=== PATIENT | female | born 1995 | race Hispanic/Latino ===

== ENCOUNTER 2020-02-02 08:41 | Outpatient (CLI) | payer OTHER ==
--- NOTE | 2020-02-02 09:26 | ULT ---
Obstetrical ultrasound: 02/02/2020 COMPARISON: None. HISTORY: 24-year-old female undergoing assessment of anatomy. TECHNIQUE: Multiplanar grayscale sonographic imaging of the gravid uterus obtained. FINDINGS: A single intrauterine gestation is present demonstrating a variable/breech presentation. Cervical gregorio gth is approximately 5 cm. urinary bladder, umbilical cord, umbilical cord insertion site, kidneys, and stomach appear grossly unremarkable. Four-chamber heart view appears within normal limit s. heart rate is 144 bpm. The spine, nose/lips, and intracranial contents appear within normal limits. Placenta located anteriorly demonstrating no evidence for previa or abruption. The maternal adnexa was not imaged on this examination. Amniotic fluid index is 15.3 cm. biometry: BPD 4.8 cm, 20 weeks 3 days Head circumference 18.4 cm, 20 weeks 6 days Abdominal circumference 17.3 cm, 22 weeks 2 days Femur length 3.6 cm, 21 weeks 3 days Average age based on ultrasound is 21 weeks 2 days. Estimated date of delivery is 06/12/2020. Estimated weight is 443 g +/- 65 g. IMPRESSION: Single intrauterine gestation as detailed above. Transcribed Date/Time: 02/02/2020 9:33 AM
== END 2020-02-02 08:42 | disposition home or self-care (01) ==
LOC: BICULT 08:41
PROVIDERS: ATTEND Family Medicine
DX: O09.92 Supervision of high risk pregnancy, unspecified, second trimester (principal); Z3A.21 21 weeks gestation of pregnancy
CPT/HCPCS: 76805

== ENCOUNTER 2020-05-01 09:20 | Day surgery (SDC) | payer OTHER ==
[2020-05-01] MEDS ORDERED: hydrALAZINE 20 MG/ML VIAL SLOW IVP PRN (10:08)
[2020-05-01] MEDS ORDERED: FLU VACC QS2020-21(6MOS UP)/PF 60 MCG/0.5 ML SYRINGE IM ONE (10:15)
[2020-05-01 11:06] LABS: ALT (SGPT) 17 U/L (8-55); AST (SGOT) 15 U/L (5-34); Albumin 3.1 g/dL (3.5-5.0); Alkaline Phosphatase 168 U/L (40-110); Anion Gap 11 mmol/L (10-20); BUN (Urea Nitrogen) 9 mg/dL (7.0-18.7); Bilirubin, Total 0.3 mg/dL (0.2-1.2); Calc. Creatinine Clearance 0 mL/min (70-130); Calcium 8.6 mg/dL (7.8-10.44); Carbon Dioxide 22 mmol/L (22-29); Chloride 104 mmol/L (98-107); Globulin 3.3 g/dL (2.4-3.5); Glucose 85 mg/dL (70-105); Potassium 3.8 mmol/L (3.5-5.1); Protein, Total 6.4 g/dL (6.0-8.3); Sodium 133 mmol/L (136-145)
[2020-05-01 11:22] LABS: #Eosinphils 0.1 thou/uL (0.0-0.7); #Lymphocytes 1.8 thou/uL (1.20-3.40); #Monocytes 0.5 thou/uL (0.11-0.59); #Neutrophils 6.8 thou/uL (1.40-6.50); %Basophils 0.4 % (0.0-1.0); %Eosinophils 0.6 % (0.0-10.0); %Lymphocytes 19.9 % (21.0-51.0); %Monocytes 5.6 % (0.0-10.0); %Neutrophils 73.6 % (42.0-75.0); Hemoglobin 11.1 g/dL (12.0-16.0); Large Platelets SLIGHT; MDiff Complete? YES; Mean Corpuscular HGB CONC 33.6 g/dL (32.0-36.0); Mean Corpuscular Hemoglobin 28.1 pg (27.0-31.0); Mean Corpuscular Volume 83.7 fL (78.0-98.0); Mean Platelet Volume 11.7 fL (7.4-10.4); Platelet Count 118 thou/uL (130-400); Platelet Morphology Comment Appears Decreased; Polychromasia SLIGHT = 2-3 cells (100X) (0-2/hpf); RBC Distribution Width 12.5 % (11.5-14.5); Red Blood Cell (RBC) Count 3.93 mill/uL (4.20-5.40); White Blood Cell (WBC) Count 9.2 thou/uL (4.8-10.8)
--- NOTE | 2020-05-01 11:33 | ULT ---
LIMITED OBSTETRICAL ULTRASOUND FOR BIOPHYSICAL PROFILE INDICATION: Nonreassuring heart tones TECHNIQUE: Grayscale, M-mode Doppler, color Doppler and spectral Doppler images were obtained. Biophy sical profile was submitted by the factory focus technician. Imaging is focused on the clinical indication. COMPARISON: February 02, 2020 GESTATION: Number of gestations: Single. Presentation: Cephalic. heart rate: 150 bpm. Placental location: Anterior Previa: No evidence for previa. Cervical length: 4.3 cm SANDIE: 11.4 cm. Biophysical profile: tone: 2 out of 2. breathin out of 2 movements: 2 out of 2 Amniotic fluid level: 2 out of 2 The uterus and adnexa were not fully evaluated. IMPRESSION: 1. Single live intrauterine gestation with size and dates as above. 2. Biophysical profile of 8 out of 8.
--- NOTE | 2020-05-01 14:07 | ULT ---
[facility] History: Abnormal heart bones Comparison: None. Findings: Real-time grayscale, color and spectral analysis of the pelvis was performed transabdominal approach. Single viable intrauterine . Ultrasound age is 34 week 5 day with estimated date of delivery June 07, 2020, concordant with the clinical age. Estimated weight: 5 lbs. 9 oz., 70th percentile. Heart rate documented at 145 bpm. . This is vertex and the placenta is anterior. Adequate amniotic fluid. The cervix is closed and measures 4 cm in length. Impression: Normal single viable intrauterine .
--- NOTE | 2020-05-01 14:14 | PRG ---
DATE OF SERVICE: 05/01/2020 PRIMARY OB: Dr. Micheal Tobar. CHIEF COMPLAINT: Abnormal heart tones. HISTORY OF PRESENT ILLNESS: The patient is a 24-year-old G2, P1 female with an intrauterine at 33 weeks and 6 days, who presented to Labor and Delivery from a routine clinic visit by her primary provider. There, the physician reports he heard heart tones down into the 90s on multiple occasions and sent the patient up here for re-evaluation. Upon arrival, patient reports she has felt good movement. She denies uterine contractions or vaginal bleeding. She denies fever, cough, headache, chest pain or shortness of breath. PAST MEDICAL HISTORY: Diet-controlled gestational diabetes. PAST SURGICAL HISTORY: She has had 1 prior . ALLERGIES: NO KNOWN DRUG ALLERGIES. MEDICATIONS: vitamins. OB LABS: Unavailable at time of dictation. REVIEW OF SYSTEMS: As per HPI. PHYSICAL EXAMINATION: VITAL SIGNS: Blood pressure 123/71, heart rate of 100, respiratory rate of 20, saturating 100% on room air, temperature 99.0. GENERAL: She appears to be in no acute distress. She is alert, oriented, cooperative, and pleasant to interact with. HEAD: Normocephalic, atraumatic. LUNGS: Clear to auscultation bilaterally. HEART: Regular rate and rhythm. ABDOMEN: Gravid, soft, nontender. EXTREMITIES: Nontender. Nonedematous. : Has been deferred. heart tracing shows the fetus at baseline in the 140s initially with minimal variability and possible decelerations as the strip progressed, moderate variability became more prominent with accelerations and repeated 20 point drops in heartbeat with quick recovery more reminiscent of signs of prematurity than any pathology. However, expected to be seen in a fetus much younger. heart tracing shows some irritability, but no contraction pattern. I reviewed the patient's blood sugars, fasting this morning was 78, blood sugars ranged from the 80s to the low 100s in most of the case, she has had a couple high ones in the 140s to 150s. BPP was performed and found to be 8/8. growth is in the 81st percentile at 2534 g. heart tracing prior to discharge continued to show baseline in the 140s with clear and moderate long-term variability, positive 15 x 15 accelerations and again with these periodic drops, that do not seem to be related to any contractions or any event and do not seem to be affecting the overall look of the tracing. The patient has been given reassurance given the overwhelming evidence of well-being and has been discharged home. She has a followup appointment with Dr. Tobar next Thursday. Mother is being discharged home. Job ID: [id number] [facility]
== END 2020-05-01 13:25 | disposition home or self-care (01) ==
LOC: L&D/OP 09:20
PROVIDERS: ATTEND Family Medicine
DX: O36.8330 Maternal care for abnormalities of the fetal heart rate or rhythm, third trimester, not applicable or unspecified (principal); O34.219 Maternal care for unspecified type scar from previous cesarean delivery; Z3A.33 33 weeks gestation of pregnancy
CPT/HCPCS: 36415; 59025; 76815; 76819; 80053; 85025; 99281

== ENCOUNTER 2020-06-08 07:58 | Outpatient (CLI) | payer OTHER ==
[2020-06-09 02:31] LABS: SARS-CoV-2 PCR by NAA Not Detected (NotDetected)
== END 2020-06-08 07:59 | disposition home or self-care (01) ==
LOC: LABBT 07:58
PROVIDERS: ATTEND Family Medicine
DX: Z01.812 Encounter for preprocedural laboratory examination (principal); Z20.822 Contact with and (suspected) exposure to COVID-19
CPT/HCPCS: 87635; U0003; U0005